=== PATIENT | female | born 2000 | race Caucasian/White ===

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

== ENCOUNTER 2024-01-08 15:06 | Emergency (ER) | payer MEDICAID, OTHER ==
[~2024-01-08] VITALS: Ht 162.6 cm; Wt 72.7 kg
[2024-01-08 15:19] VITALS: BP 107/75; PULSE 79; O2SAT 100
[2024-01-08] MEDS ORDERED: NAPR-56 PO (17:10)
[2024-01-08 17:15] VITALS: RESP 18; TEMP 98.3
== END 2024-01-08 17:16 | disposition home or self-care (01) ==
LOC: ER 15:07
DX: S93.491A Sprain of other ligament of right ankle, initial encounter (principal); Z88.1 Allergy status to other antibiotic agents; Z88.8 Allergy status to other drugs, medicaments and biological substances; Z79.899 Other long term (current) drug therapy; X50.1XXA Overexertion from prolonged static or awkward postures, initial encounter; Y93.89 Activity, other specified; Y92.89 Other specified places as the place of occurrence of the external cause; Y99.8 Other external cause status
CPT/HCPCS: 73610; 99284; A6449

== ENCOUNTER 2024-07-29 08:06 | Emergency (ER) | payer OTHER ==
[~2024-07-29] VITALS: Ht 162.6 cm; Wt 66.2 kg
[2024-07-29 08:33] LABS: BILIRUBIN,URINE NEGATIVE (Neg); CLARITY,URINE CLEAR (Clear); COLOR,URINE STRAW (Yellow); GLUCOSE, URINE NEGATIVE (Neg); KETONES,URINE NEGATIVE (Neg); LEUKOCYTE ESTERASE ,URINE NEGATIVE (Neg); NITRITES, URINE NEGATIVE (Neg); OCCULT BLOOD,URINE MODERATE (Neg); PROTEIN,URINE NEGATIVE (Neg); UROBILINOGEN,URINE 0.2 E.U/dL (0.2-1.0)
[2024-07-29 08:35] LABS: UA COLLECTION TYPE CLN CATCH MIDSTREAM; URINE HCG NEGATIVE (NEG)
[2024-07-29 09:05] LABS: BASOPHILS % (AUTO) 0.7 % (0-1); EOSINOPHILS # (AUTO) 0.3 X10'3 (0-0.9); EOSINOPHILS % (AUTO) 4.1 % (0-6); HEMATOCRIT 37.6 % (35.0-45.0); HEMOGLOBIN 12.5 g/dl (12.0-16.0); LYMPHOCYTES # (AUTO) 2.3 X10'3 (1.1-4.8); LYMPHOCYTES % (AUTO) 37.6 % (21-51); MEAN CORPUSCULAR HEMOGLOBIN 30.1 PG (27.0-31.0); MEAN CORPUSCULAR HGB CONC 33.4 g/dL (33.0-36.5); MEAN CORPUSCULAR VOLUME 90.3 FL (78-98); MEAN PLATELET VOLUME 9.5 FL (7.4-10.4); MONOCYTES # (AUTO) 0.4 X10'3 (0-0.9); MONOCYTES % (AUTO) 7.1 % (2-12); NEUTROPHILS # (AUTO) 3.2 X10'3 (1.8-7.7); NEUTROPHILS % (AUTO) 50.5 % (42-75); PLATELET COUNT 166 X10'3 (140-440); RED BLOOD COUNT 4.16 X10'6 (4.20-5.60); RED CELL DISTRIBUTION WIDTH 12.9 % (11.5-14.5); WHITE BLOOD COUNT 6.2 X10'3 (4.5-11.0)
[2024-07-29 09:11] LABS: BACTERIA,URINE NONE SEEN /HPF (Neg); MUCUS STRANDS FEW /LPF (Neg); RBC,URINE 0-2 /HPF (0-2); SQUAMOUS EPITHELIAL CELL,UR FEW /LPF (FEW); WBC,URINE NONE SEEN /HPF (0-4)
[2024-07-29 09:13] LABS: ALANINE AMINOTRANSFERASE 15 U/L (12-78); ALBUMIN 3.5 G/DL (3.4-5.0); ALKALINE PHOSPHATASE 67 IU/L (46-116); ANION GAP 8 (8-16); ASPARTATE AMINO TRANSFERASE 15 U/L (10-37); BILIRUBIN,TOTAL 0.3 MG/DL (0.1-1.0); BLOOD UREA NITROGEN 14 MG/DL (7-18); BUN/CREATININE RATIO 24.6 (10.0-20.0); CALCIUM 8.5 MG/DL (8.5-10.1); CHLORIDE 107 MMOL/L (99-107); CREATININE 0.57 MG/DL (0.40-0.90); GLUCOSE 99 MG/DL (70-104); POTASSIUM 3.9 MMOL/L (3.5-5.1); SODIUM 140 MMOL/L (135-145); TOTAL CARBON DIOXIDE 25.3 MMOL/L (24-32); eCRCL 135 ML/MIN; eGFR > 90 ML/MIN
[2024-07-29 09:50] VITALS: BP 118/71; PULSE 80; RESP 14; TEMP 98; O2SAT 99
== END 2024-07-29 09:52 | disposition home or self-care (01) ==
LOC: ER 08:07
DX: N93.9 Abnormal uterine and vaginal bleeding, unspecified (principal); Z88.0 Allergy status to penicillin; Z88.5 Allergy status to narcotic agent; Z87.440 Personal history of urinary (tract) infections; Z97.5 Presence of (intrauterine) contraceptive device
CPT/HCPCS: 36415; 80053; 81001; 81025; 85025; 99284

== ENCOUNTER 2024-12-08 18:36 | Emergency (ER) | payer MEDICAID, OTHER ==
[~2024-12-08] VITALS: Ht 162.6 cm; Wt 61.4 kg
[2024-12-08 18:47] VITALS: BP 105/64; PULSE 84; RESP 15; O2SAT 99
[2024-12-08 19:29] LABS: BASOPHILS # (AUTO) 0.1 X10'3 (0-0.2); BASOPHILS % (AUTO) 0.8 % (0-1); EOSINOPHILS # (AUTO) 0.2 X10'3 (0-0.9); EOSINOPHILS % (AUTO) 1.6 % (0-6); HEMATOCRIT 37.6 % (35.0-45.0); HEMOGLOBIN 12.3 g/dl (12.0-16.0); LYMPHOCYTES % (AUTO) 17.4 % (21-51); MEAN CORPUSCULAR HEMOGLOBIN 26.2 PG (27.0-31.0); MEAN CORPUSCULAR HGB CONC 32.7 g/dL (33.0-36.5); MEAN PLATELET VOLUME 9.4 FL (7.4-10.4); MONOCYTES # (AUTO) 0.7 X10'3 (0-0.9); MONOCYTES % (AUTO) 6.2 % (2-12); NEUTROPHILS # (AUTO) 8.5 X10'3 (1.8-7.7); PLATELET COUNT 258 X10'3 (140-440); RED CELL DISTRIBUTION WIDTH 15.5 % (11.5-14.5); WHITE BLOOD COUNT 11.4 X10'3 (4.5-11.0)
[2024-12-08 19:42] LABS: ALANINE AMINOTRANSFERASE 17 U/L (12-78); ALBUMIN 3.9 G/DL (3.4-5.0); ALKALINE PHOSPHATASE 80 IU/L (46-116); ANION GAP 7 (8-16); ASPARTATE AMINO TRANSFERASE 14 U/L (10-37); BILIRUBIN,TOTAL 0.3 MG/DL (0.1-1.0); BLOOD UREA NITROGEN 12 MG/DL (7-18); BUN/CREATININE RATIO 16.4 (10.0-20.0); CALCIUM 9.1 MG/DL (8.5-10.1); CHLORIDE 103 MMOL/L (99-107); CREATININE 0.73 MG/DL (0.40-0.90); GLUCOSE 100 MG/DL (70-104); LIPASE 30 U/L (16-77); SODIUM 137 MMOL/L (135-145); TOTAL CARBON DIOXIDE 27.4 MMOL/L (24-32); TOTAL PROTEIN 7.8 G/DL (6.4-8.2); eCRCL 104 ML/MIN; eGFR > 90 ML/MIN
[2024-12-08 19:44] LABS: BILIRUBIN,URINE NEGATIVE (Neg); CLARITY,URINE SLIGHTLY CLOUDY (Clear); COLOR,URINE YELLOW (Yellow); GLUCOSE, URINE NEGATIVE (Neg); KETONES,URINE NEGATIVE (Neg); LEUKOCYTE ESTERASE ,URINE MODERATE (Neg); NITRITES, URINE NEGATIVE (Neg); OCCULT BLOOD,URINE SMALL (Neg); PH,URINE 6.5 (4.8-8.0); PROTEIN,URINE NEGATIVE (Neg); UROBILINOGEN,URINE 0.2 E.U/dL (0.2-1.0)
[2024-12-08 19:45] LABS: URINE HCG NEGATIVE (NEG)
[2024-12-08 19:48] LABS: UA COLLECTION TYPE CLN CATCH MIDSTREAM
[2024-12-08 20:14] LABS: BACTERIA,URINE FEW /HPF (Neg); RBC,URINE 0-2 /HPF (0-2); SQUAMOUS EPITHELIAL CELL,UR FEW /LPF (FEW); WBC,URINE 30-50 /HPF (0-4)
[2024-12-08 20:15] LABS: WBC CLUMPS,URINE FEW /HPF (NEGATIVE)
[2024-12-08] MEDS ORDERED: CEFP100T7 PO (20:40)
--- NOTE | 2024-12-08 20:41 | Physician Documentation ---
History of Present Illness ~ Chief Complaint: Flank Pain Stated Complaint: KIDNEY INFECTION Time Seen by MD: 19:26 Primary Medical Doctor: [facility] HPI This is a 24-year-old female who presents with two weeks of suprapubic discomfort and dysuria, patient reports that she developed bilateral flank pain today. She reports she was treated for UTI proximally two weeks ago finishing a course of Cipro though dysuria and suprapubic discomfort did not resolve. Patient reports she feels otherwise well and reports no other acute symptoms or concerns including no no fever or chills. Medication Reconciliation Allergies: Coded Allergies: amoxicillin (Verified Allergy, Unknown, RASH, 12/08/24) hydrocodone (Verified Allergy, Unknown, RASH, 12/08/24) Scheduled Cefpodoxime Proxetil (Cefpodoxime Proxetil), 1 TAB PO Q12H Phenazopyridine HCl (Pyridium), 1 TAB PO Q8H Past Medical History Past Medical History: UTI Past Surgical History: no surgical history Drug Use: none Lives with: Mother Lives In: Home Review of Systems ROS Flank pain and dysuria as stated above in the HPI, otherwise all systems are reviewed and negative. Physical Exam Vital Signs: Temperature: 98.4, Source: Oral, Heart Rate: 84, Respiratory Rate: 15, BP: 105/64, Pulse Oximetry: 99, Weight: 61.360 Physical Exam VITALS: Reviewed and as above. GENERAL: Alert, nontoxic appearing, no apparent distress. RESPIRATORY: No increased work of breathing, no respiratory distress, speaking in full clear sentences, clear lung sounds in all park CV: Regular rate and rhythm no murmur BACK: Right CVA tenderness GI: Mild suprapubic discomfort to palpation otherwise Nondistended, soft, no rebound, no tenderness, bowel sounds present Progress Results/Orders Results/Orders Completed Orders - RUPESH DELGADO Ceftriaxone Im Kit W/Lidocaine (Rocephin (12/08/24 20:45) Medications Received in ER Medications (Trade) Dose Ordered Sig/[facility] Route PRN Reason Start Time Stop Time Status Last Admin Dose Admin (Rocephin 1GM IM kit (w/lidocaine diluent)) 1,000 mg ONCE ONCE IM 12/08/24 20:45 12/08/24 20:46 DC 12/08/24 21:00 1,000 MG Vital Signs 12/08/24 12/08/24 18:47 21:34 Temp 98.4 98.4 Pulse 84 Resp 15 B/P (MAP) 105/64 Pulse Ox 99 Laboratory Tests Test 12/08/24 19:21 12/08/24 19:23 White Blood Count 11.4 H Red Blood Count 4.70 Hemoglobin 12.3 Hematocrit 37.6 Mean Corpuscular Volume 80.0 Mean Corpuscular Hemoglobin 26.2 L Mean Corpuscular Hemoglobin Concent 32.7 L Red Cell Distribution Width 15.5 H Platelet Count 258 Mean Platelet Volume 9.4 Neutrophils (%) (Auto) 74.0 Lymphocytes (%) (Auto) 17.4 L Monocytes (%) (Auto) 6.2 Eosinophils (%) (Auto) 1.6 Basophils (%) (Auto) 0.8 Neutrophils # (Auto) 8.5 H Lymphocytes # (Auto) 2.0 Monocytes # (Auto) 0.7 Eosinophils # (Auto) 0.2 Basophils # (Auto) 0.1 CBC Comment Sodium Level 137 Potassium Level 4.0 Chloride Level 103 Carbon Dioxide Level 27.4 Anion Gap 7 L Blood Urea Nitrogen 12 Creatinine 0.73 Estimated GFR/1.73 m2 > 90 BUN/Creatinine Ratio 16.4 Glucose Level 100 Calcium Level 9.1 Total Bilirubin 0.3 Aspartate Amino Transf (AST/SGOT) 14 Alanine Aminotransferase (ALT/SGPT) 17 Alkaline Phosphatase 80 Total Protein 7.8 Albumin 3.9 Globulin 3.9 Albumin/Globulin Ratio 1.0 L Lipase 30 Chemistry Comments Urine Specimen Description Cln catch midstream Urine Color Yellow Urine Clarity Slightly cloudy Urine pH 6.5 Urine Specific [place] <=1.005 Urine Protein Negative Urine Glucose (UA) Negative Urine Ketones Negative Urine Occult Blood Small Urine Nitrite Negative Urine Bilirubin Negative Urine Urobilinogen 0.2 Urine Leukocyte Esterase Moderate H Urine RBC 0-2 Urine WBC 30-50 H Urine WBC Clumps Few Urine Squamous Epithelial Cells Few Urine Bacteria Few Urine Mucus Urine Culture Indicated Indicated Volume Urine Centrifuged 10 ml Urine HCG, Qualitative Negative Urine Comment Microbiology Date/Time Source Procedure Growth Status 12/08/24 20:15 Urine Clean Catch Midstream Urine Culture - Preliminary Culture received. Resulted Medical Decision Making Findings This 24-year-old female presented with two weeks of dysuria has been suprapubic discomfort that did not improve with a course of antibiotics after being diagnosed with UTI primary care provider, today she developed bilateral flank pain without fever or chills. Physical exam did demonstrate CVA tenderness in the right side given patient's previous diagnosis of UTI and current symptoms I suspect patient has developed pyelonephritis, patient is otherwise well- appearing with relatively benign physical exam. UA supported current urinary tract infection though remainder of lab work did not indicate significant systemic infection or metabolic derangement. Patient is hemodynamically stable and appropriate for outpatient follow up. Patient treated with single dose of Rocephin in the department and we will be started on course of oral antibiotics for pyelonephritis. Patient reports pain well controlled in department. Careful return to care precautions discussed with the patient which she verbal ized understanding of. Urinary Diff Dx:Considerations: Include: Appendicitis, Bowel obstruction, Ectopic , Ovarian torsion, Urolithiasis, Urinary retention Departure Disposition: HOME / SELF CARE / HOMELESS Impression: Primary Impression: Acute pyelonephritis Additional Impression: Acute urinary tract infection Condition: Improved Discharge Instructions: Pyelonephritis, Adult Additional Instructions: Please take the antibiotics as prescribed. Please follow up with your primary care provider in the next few days for recheck. Please return to the emergency department for any new or worsening concerning symptoms including but not limited to fever over 100.4 that does not lower with ibuprofen or Tylenol or symptoms that continue to persist. Referrals: NO PRIMARY CARE PROVIDER (PCP) Prescriptions Cefpodoxime Proxetil (Cefpodoxime Proxetil) 100 Mg Tablet 1 TAB PO Q12H for 10 Days, #20 TAB 0 Refills Prov: RUPESH DELGADO 12/08/24 Education Educated: Patient Educated regarding: diagnosis, treatment, prognosis, need for follow up Signature Scribe Signature: No scribe Attestation: The note accurately reflects work and decisions made by me.BRITTA Mosley 03:06 RUPESH DELGADO December 08, 2024 20:41
[2024-12-08] MEDS: CefTRIAXone 1000mg IM Kit (w/lidocaine diluent) IM ONE (21:00)
[2024-12-08 21:34] VITALS: TEMP 98.4
== END 2024-12-08 21:36 | disposition home or self-care (01) ==
LOC: ER 18:36
DX: N10 Acute pyelonephritis (principal); N39.0 Urinary tract infection, site not specified; Z88.5 Allergy status to narcotic agent; Z88.1 Allergy status to other antibiotic agents; Z79.899 Other long term (current) drug therapy
CPT/HCPCS: 36415; 80053; 81001; 81025; 83690; 85025; 87077; 87088; 87186; 96372; 99283; J0696